=== PATIENT | male | born 1960 | race Caucasian/White ===

== ENCOUNTER 2018-08-06 09:34 | Outpatient (CLI) | payer BC, OTHER ==
--- NOTE | 2018-08-06 13:40 | MRI ---
MRI LUMBAR SPINE WITHOUT CONTRAST: DATE: 08/06/2018. COMPARISON: None. HISTORY: Lo back pain. TECHNIQUE: Multiplanar, multisequence MR imaging of the lumbar spine provided without contrast. FINDINGS: Secondary to congenitally short pedicles, there is diffuse central canal stenosis throughout the lumb ar spine. The STIR imaging demonstrates prominent degenerative edematous end plate change at the L4- 5 level. No anterolisthesis or retrolisthesis is evident within the lumbar spine. Conus medullaris terminates at the T12-L1 level. T12-L1: Intervertebral disk height and signal intensity is within normal limits. Mild bilateral fac et hypertrophy with no significant central canal or neural foraminal stenosis. L1-2: Mild bilateral facet hypertrophy. Intervertebral disk height and signal intensity within norm al limits. No significant central canal or neural foraminal stenosis. L2-3: Intervertebral disk height and signal intensity within normal limits. Mild bilateral facet hy pertrophy. Mild central canal stenosis. No neural foraminal stenosis. L3-4: Moderate bilateral facet hypertrophy and hypertrophy of the ligamentum flavum. Mild central c anal stenosis. Disk desiccation and minimal disk bulge. No significant neural foraminal stenosis. L4-5: Moderate facet hypertrophy and hypertrophy of the ligamentum flavum. Disk space narrowing, di sk desiccation, and mild disk bulge. Moderate central canal stenosis. Mild bilateral neural foramin al stenosis. L5-S1: Intervertebral disk height and signal intensity within normal limits with no significant cent ral canal or neural foraminal stenosis. The imaged retroperitoneal structures appear grossly unremarkable. 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 The most significant fin dings are at the L4-5 level. POS: DULCE
== END 2018-08-06 09:35 | disposition home or self-care (01) ==
LOC: TBSIIMAG 09:34
PROVIDERS: ATTEND Neurological Surgery
DX: M54.5 Low back pain (principal); M47.816 Spondylosis without myelopathy or radiculopathy, lumbar region
CPT/HCPCS: 72148

== ENCOUNTER 2018-11-05 07:22 | Outpatient (CLI) | payer BC, OTHER ==
--- NOTE | 2018-11-05 08:36 | MRI ---
MRI Cervical Spine WO Con History: [M 54.12 radiculopathy of cervical region] Comparison: CT cervical spine 2009 Findings: The cerebellar tonsil terminates the level of the foramen magnum. The cord signal is normal . No marrow infiltrative process. Paraspinal soft tissues are unremarkable. Susceptibility artifact from ACDF hardware. Levels are as follows: C2/C3: Mild uncinate process hypertrophy. Moderate bilateral facet arthropathy. Moderate left and mil d right-sided neural foraminal narrowing. No spinal canal narrowing. C3/C4: Broad-based posterior disc osteophyte complex extending into the subforaminal zones. Moderate facet arthrosis. Minimal effacement of the ventral CSF space. Spinal canal measures 1 cm. Moderate bi lateral neural foraminal narrowing. C4/C5: Mild disc desiccation. Moderate uncinate process hypertrophy. Moderate to severe right and mod erate left facet arthropathy. Moderate to severe right and moderate left neural foraminal narrowing. Minimal effacement of the ventral CSF space. C5/C6: Broad-based posterior disc osteophyte complex greatest in the central zone. There is effacemen t of the ventral CSF space. The spinal canal measuring approximately 9 mm. Moderate left facet arthro lani. Moderate left and mild right neural foraminal narrowing. C6/C7: Prior discectomy change. No neural foraminal or spinal canal narrowing. Impression: Moderate degenerative changes upper cervical spine as described with multilevel neural fo raminal and minimal spinal canal narrowing. No cord abutment.
--- NOTE | 2018-11-05 09:10 | RAD ---
CERVICAL SPINE 5 VIEWS: Date: 11/05/18 COMPARISON: None. HISTORY: Cervical spine radiculopathy. FINDINGS: Images include frontal view, neutral, flexion, and extension lateral views, and a lateral swimmer's v iew. There is mild degenerative change at the atlantoaxial interspace. At C3-4, C4-5, and C5-6, there is d isc space narrowing with anterior osteophyte formation. Anterior diskectomy and fusion hardware is pr esent at C6-7/C7-T1. No anterolisthesis or retrolisthesis is seen on the neutral imaging. With flexio n and extension, there is no significant anterolisthesis or retrolisthesis. There is multilevel bilateral facet and uncovertebral osteophyte formation within the cervical spine, which includes C2-3, C3-4, and C4-5. No prevertebral soft tissue swelling. No acute fracture or disl ocation. IMPRESSION: Multilevel degenerative and postoperative change within the cervical spine as above. POS: OFF
== END 2018-11-05 07:23 | disposition home or self-care (01) ==
LOC: BICMRI 07:22
PROVIDERS: ATTEND Nurse Practitioner Family
DX: M47.22 Other spondylosis with radiculopathy, cervical region (principal); M48.02 Spinal stenosis, cervical region; Z98.890 Other specified postprocedural states
CPT/HCPCS: 36415; 72050; 72141; 82670; 84270; 84403; 85025

== ENCOUNTER 2023-12-26 14:48 | Outpatient (CLI) | payer BC | END 2023-12-26 14:49 | disposition home or self-care (01) | LOC: SCSMRI 14:48 | PROVIDERS: ATTEND Nurse Practitioner Family | DX: M48.062 Spinal stenosis, lumbar region with neurogenic claudication (principal); M47.815 Spondylosis without myelopathy or radiculopathy, thoracolumbar region; M47.816 Spondylosis without myelopathy or radiculopathy, lumbar region; M47.817 Spondylosis without myelopathy or radiculopathy, lumbosacral region | CPT/HCPCS: 72148 ==